=== PATIENT | female | born 1995 | race Caucasian/White ===

== ENCOUNTER 2021-03-16 12:28 | Emergency (ER) | payer OTHER ==
[2021-03-17 14:26] LABS: SARS-CoV-2 PCR by NAA Not Detected (NotDetected)
== END 2021-03-16 13:30 | disposition home or self-care (01) ==
LOC: CSHERS 12:28
DX: J18.9 Pneumonia, unspecified organism (principal); E28.2 Polycystic ovarian syndrome; Z20.822 Contact with and (suspected) exposure to COVID-19
CPT/HCPCS: 71045; U0003; U0005